=== PATIENT | male | born 1970 | race Hispanic/Latino ===

== ENCOUNTER 2025-08-06 05:05 | Emergency (ER) | payer SELFPAY ==
[~2025-08-06] VITALS: Ht 170.2 cm; Wt 97.5 kg
--- NOTE | 2025-08-06 05:27 | NUR ---
PT WENT TO [facility]. I ASKED THEM TO PLEASE NOT GIVE PT FLUIDS IF HE IS NAUSEATED AND VOMITING. FAMILY VOICED UNDERSTANDING
[2025-08-06] MEDS: M.V.I. IV [ADULT] 10 ML, FOLic ACID 5 MG/ML VIAL 1 MG, THIAMINE HCL 100 MG in 0.9%NACL ... IV SCH (05:50)
--- NOTE | 2025-08-06 06:00 | ERN ---
General Chief Complaint: Alcohol Intoxication Stated Complaint: ETOH, VOMITING Time Seen by MD: 05:15 Source: patient, family History of Present Illness Initial Comments 54-year-old male presents to emergency room with the complaints of hematemesis and alcohol intoxication. As per who was at bedside patient was watching the baseball game and drank greater than 10 drinks of Bong walker before he passed out. Patient does not remember the incident. Denies any loss of consciousness or head trauma. He was observed by his friends and his throughout the whole time. When prompted about what had happened tonight patient does not remember. Allergies: Coded Allergies: No Known Allergies (Unverified Allergy, Unknown, 08/06/25) Past Medical History Past Medical History: Hypertension Past Surgical History: Other Surgical History Other: RT ARM Gastrointestinal/Abdominal: (+) nausea, (+) vomiting Physical Exam General Appearance: (+) no apparent distress General Appearance comment Obviously intoxicated Orientation: (+) alert, (+) oriented x 3 Eye: bilateral eye normal inspection, bilateral eye PERRL, bilateral eye EOMI Ear, Nose, Throat: (+) normal ENT inspection, (+) moist mucous membraine, (+) normal pharynx Neck: (+) normal inspection Respiratory: (+) chest non-tender, (+) lungs clear Heart: (+) regular; (-) murmur Vascular: (+) no edema Gastrointestinal: (+) soft, (+) non-tender Skin: (+) normal color Results Laboratory and Microbiology Lab and Micro Result Laboratory Tests Test 08/06/25 05:58 08/06/25 08:13 08/06/25 09:55 08/06/25 11:55 White Blood Count 12.9 K/uL (4.8-10.8) H Red Blood Count 5.62 MIL/uL (4.50-6.20) Hemoglobin 15.8 g/dL (14.0-18.0) Hematocrit 44.9 % (42-54) Mean Corpuscular Volume 79.9 fL (79-99) Mean Corpuscular Hemoglobin 28.1 pg (27.0-33.0) Mean Corpuscular Hemoglobin Concent 35.2 g/dL (32.0-36.0) Red Cell Distribution Width 13.0 % (11.0-15.5) Platelet Count 252 K/uL (130-400) Mean Platelet Volume 9.9 fL (7.5-10.5) Immature Granulocyte % (Auto) 0.7 % (0-1) Neutrophils (%) (Auto) 84.3 % (40.0-77.0) H Lymphocytes (%) (Auto) 11.4 % (21.0-51.0) L Monocytes (%) (Auto) 3.0 % (3.0-13.0) Eosinophils (%) (Auto) 0.2 % (0.0-8.0) Basophils (%) (Auto) 0.4 % (0.0-5.0) Neutrophils # (Auto) 10.9 K/uL (1.8-7.7) H Lymphocytes # (Auto) 1.5 K/uL (1.0-4.8) Monocytes # (Auto) 0.4 K/uL (0.1-1.0) Eosinophils # (Auto) 0.02 K/uL (0.00-0.70) Basophils # (Auto) 0.05 K/uL (0.00-0.20) Absolute Immature Granulocyte (auto 0.09 K/uL (0-1) Nucleated Red Blood Cells 0.0 % (0.0-0.19) Sodium Level 138 mmol/L (136-145) Potassium Level 3.3 mmol/L (3.5-5.1) L Chloride Level 101 mmol/L (101-111) Carbon Dioxide Level 23 mmol/L (21-32) Blood Urea Nitrogen 12 mg/dL (7-18) Creatinine 0.9 mg/dL (0.5-1.3) Glomerular Filtration Rate Calc 102 mL/min (>90) Random Glucose 126 mg/dL (70-105) H Total Calcium 8.3 mg/dL (8.5-10.1) L Total Bilirubin 0.7 mg/dL (0.2-1.0) Direct Bilirubin 0.1 mg/dL (0.0-0.3) Aspartate Amino Transf (AST/SGOT) 28 U/L (10-37) Alanine Aminotransferase (ALT/SGPT) 34 U/L (12-78) Alkaline Phosphatase 71 U/L (50-136) Total Protein 7.6 g/dL (6.0-8.3) Albumin 4.3 g/dL (3.5-5.0) Serum Alcohol 153 mg/dL (0-10) H 90 mg/dL (0-10) H Urine Opiates Screen NEGATIVE (NEGATIVE) Urine Barbiturates Screen NEGATIVE (NEGATIVE) Urine Phencyclidine Screen NEGATIVE (NEGATIVE) Urine Amphetamines Screen NEGATIVE (NEGATIVE) Urine Benzodiazepines Screen NEGATIVE (NEGATIVE) Urine Cocaine Screen NEGATIVE (NEGATIVE) Urine Marijuana (THC) Screen NEGATIVE (NEGATIVE) Troponin I High Sensitivity 9 ng/L (4-75) Lipase 22 U/L (16-77) Influenza Type A Antigen Negative For Type A Influenza Type B Antigen Negative For Type B Labs Reviewed?: Yes EKG/XRAY/US/CT/MRI CT Scan Comment IMAGING REPORT Signed PATIENT: ROEL MARES MR#: [id number] : 1970 SEX: M AGE: 54 LOCATION: [facility] ORDER 1 STATUS: [facility] REPORT#: [id number] SERVICE 0 REASON: etoh ntox, fell on head, face hurts ORDERING PHYSICIAN: MARIO MORA MD PROCEDURE: HEAD WO - CT HEAD/BRAIN W/O CONTRAST EXAM: CT Head Without IV contrast. CLINICAL HISTORY: etoh ntox, fell on head, face hurts TECHNIQUE: Axial computed tomography images of the head/brain without intravenous contrast. COMPARISON: None provided. FINDINGS: BRAIN: No evidence of acute hemorrhage. No mass lesion. No CT evidence for acute territorial infarct. No midline shift or extra-axial collections. VENTRICLES: No hydrocephalus. ORBITS: The orbits are unremarkable. SINUSES AND MASTOIDS: The paranasal sinuses and mastoid air cells are clear. BONES: No fracture. SOFT TISSUES: Unremarkable. IMPRESSION: No acute intracranial abnormality. /[place] DICTATED BY: CORKY PEREZ Jr., MD DATE: 08/06/25805 ELECTRONICALLY SIGNED BY: CORKY PEREZ Jr., MD DATE: 08/06/25805 [facility] MDM: DIFFERENTIAL DIAGNOSIS:ALCOHOL INTOXICATION, GASTRITIS RATIONALE: TESTS CONSIDERED AND ORDERED SECONDARY TO SHARED DECISION MAKING INCLUDE: PREVIOUS OUTSIDE RECORDS REVIEWED: OLD ER VISITS. RISK OF COMPLICATION AND/OR MORBIDITY OR MORTALITY OF PATIENT MANAGEMENT: NONE MEDICATIONS-PER MEDICATION RECONCILIATION NEED FOR HOSPITALIZATION: PATIENT DOES NOT MEET CRITERIA FOR HOSPITALIZATION. NEED FOR EMERGENCY MAJOR/MINOR SURGERY: NO THERE ARE NO SOCIAL CONCERNS WITH THIS PATIENT. 54-year-old male history of hypertension here with for evaluation of vomiting and alcohol intoxication. PATIENT HAS A ELEVATED ALCOHOL HYDRATED MEDICATION WAS GIVEN FOR SYMPTOMATIC RELIEF STATES HE FEELS MUCH BETTER WE WILL BE DISCHARGED IN STABLE CONDITION P.O. CHALLENGE PASSED. ED Course Orders Procedure Category Date Status Time Cbc With Differential LAB 08/06/25 Complete 05:15 Basic Metabolic Panel LAB 08/06/25 Complete 05:15 Alcohol, Blood LAB 08/06/25 Complete 05:15 M.V.I. Iv [Adult] PHA 08/06/25 Complete (M.V.I. Iv [Adult])... 06:00 Hepatic Function Panel LAB 08/06/25 Complete 05:52 Ct Head/Brain W/O CT 08/06/25 Resulted Contrast 06:01 Ondansetron 4mg Inj PHA 08/06/25 Complete (Zofran 4mg Inj) 06:30 Insulin Regular, PHA 08/06/25 Complete Human 3ml (Humulin R 11:30 Dextrose 50%-Water PHA 08/06/25 Complete (D50w) 08:30 Glucagon 1mg Kit PHA 08/06/25 Complete (Glucagon 1mg Kit) 08:30 Potassium Chloride PHA 08/06/25 Complete 20meq/100ml ([place] 08:30 Potassium Chl 10% PHA 08/06/25 Complete Elixir 20meq (Kcl 10% 08:30 Potassium Chloride PHA 08/06/25 Complete 20meq Er (K-Dur/Klor- 08:30 Magnesium 2gm Premix PHA 08/06/25 Complete 50ml (Magnesium 2gm 08:30 Drug Screen Urine LAB 08/06/25 Complete 08:12 Influenza Type A & B, LAB 08/06/25 Complete Rapid 08:12 Potassium Bicarb/Cit PHA 08/06/25 Complete Ac 25meq (K-Lyte Ta 09:00 Alcohol, Blood LAB 08/06/25 Complete 09:52 Lipase LAB 08/06/25 Complete 11:09 Troponin I High LAB 08/06/25 Complete Sensitivity 11:09 Lidocaine Hcl 2% PHA 08/06/25 Complete Viscous (Lidocaine Hcl 12:30 Mag/Alum/Simeth 30ml PHA 08/06/25 Complete (Maalox Plus 30ml) 12:30 Current Medications Medications (Trade) Dose Ordered Sig/Walter Route PRN Reason Start Time Stop Time Status Last Admin Dose Admin Al Hydroxide/Mg Hydroxide (MAALox PLUS 30ML) 30 ml ONCE ONCE PO 08/06/25 12:30 08/06/25 12:31 DC 08/06/25 12:35 Dextrose (D50w) 50 ml AD PRN IV HYPOGLYCEMIA PROTOCOL 08/06/25 08:30 08/06/25 08:37 DC Glucagon (Glucagon 1mg Kit) 1 mg AD PRN IM HYPOGLYCEMIA PROTOCOL 08/06/25 08:30 08/06/25 08:37 DC Insulin Human Regular (humuLIN R 100 UNIT/ML 3ML) INSULIN SLIDING SCAL... ACHS SQ 08/06/25 11:30 08/06/25 08:37 DC Lidocaine HCl (Lidocaine HCl 2% Viscous) 10 ml ONCE ONCE PO 08/06/25 12:30 08/06/25 12:31 DC 08/06/25 12:34 Magnesium Sulfate 50 ml @ 0 mls/hr PROTOCOL PRN IV other 08/06/25 08:30 08/06/25 08:37 DC Multivitamins/ Minerals 10 ml/ Folic Acid 1 mg/ Thiamine HCl 100 mg/Sodium Chloride 1,011.2 ml @ 101.12 mls/hr Q24H IV 08/06/25 06:00 08/06/25 08:37 DC 08/06/25 05:50 Ondansetron HCl (zoFRAN 4MG INJ) 4 mg ONCE ONCE IVP 08/06/25 06:30 08/06/25 08:37 DC 08/06/25 06:23 Potassium Bicarbonate (K-Lyte Tablet Eff 25 Meq Tablet.eff) 25 meq ONCE ONCE PO 08/06/25 09:00 08/06/25 09:01 DC 08/06/25 09:59 Potassium Chloride 100 ml @ 100 mls/hr AD PRN IV POTASSIUM PROTOCOL 08/06/25 08:30 08/06/25 08:37 DC Potassium Chloride (K-Dur/Klor-Con 20meq) 20 meq AD PRN PO POTASSIUM PROTOCOL 08/06/25 08:30 08/06/25 08:37 DC Potassium Chloride (KCl 10% Elixir 20meq/15ml) 20 meq AD PRN PO POTASSIUM PROTOCOL 08/06/25 08:30 08/06/25 08:37 DC Vital Signs Date Time Temp Pulse Resp B/P (MAP) Pulse Ox O2 Delivery O2 Flow Rate FiO2 08/06/25 13:18 98.6 100 20 140/85 97 Room Air* 0 08/06/25 11:27 98.6 97 22 149/100 96 Room Air* 0 08/06/25 07:54 98.6 91 22 116/70 98 Room Air* 0 08/06/25 06:02 98.8 88 18 145/66 98 Room Air* 0 08/06/25 05:15 97.5 84 20 143/85 100 Room Air DX & DISP Disposition: Discharge Departure Impression: Primary Impression: Alcohol intoxication Additional Impression: Gastritis Condition: Stable Scripts Pantoprazole Sodium (Protonix) 40 Mg Ectab 1 TAB PO DAILY for 30 Days, #30 TAB 0 Refills Prov: MAYKEL WALLS MD 08/06/25 Lactobacillus Acidophilus (Acidophilus Probiotic) 500 Million Cell Capsule 1 CAP PO BID for 7 Days, #14 CAP 0 Refills Prov: MAYKEL WALLS MD 08/06/25 Additional Instructions: FOLLOW-UP WITH PRIMARY CARE PROVIDER IN 1 TO 2 DAYS. TAKE MEDICATIONS D IRECTED HERE IN THE EMERGENCY ROOM. OKAY TO CONTINUE HOME MEDICATIONS UNLESS OTHERWISE DISCUSSED DURING YOUR VISIT IN THE EMERGENCY ROOM TODAY. RETURN TO YOUR NEAREST EMERGENCY ROOM IF SYMPTOMS WORSEN OR IF THERE IS NO IMPROVEMENT. CALL 911 IF YOU NEED IMMEDIATE ASSISTANCE. TAKE TYLENOL [id number] NEEDED AND IF NO CONTRAINDICATIONS ARE PRESENT. INCREASE ORAL HYDRATION. A WOUND CULTURE OR URINE CULTURE WAS ORDERED HERE IN THE EMERGENCY ROOM DEPARTMENT PLEASE FOLLOW-UP WITH PRIMARY CARE PROVIDER AND ADVISE THEM TO GET REPORTS FROM OUR FACILITY. IF YOU HAD ANY JAK WRAP/SPLINTS THAT WERE APPLIED HERE, PLEASE DO NOT REMOVE THEM UNTIL YOU SEE YOUR PRIMARY CARE OR SPECIALTY. REFERRALS: Referrals: NONE (PCP) RAJESH HOOPER MD Time of Disposition: 13:25 MARIO MORA MD Aug 06, 2025 06:00 MAYEKL WALLS MD Aug 06, 2025 13:05
[2025-08-06 06:06] LABS: IMMATURE GRANULOCYTE ABSOLUTE 0.09 K/uL (0-1); NUCLEATED RED BLOOD CELLS 0.0 % (0.0-0.19); PLATELET COUNT (AUTO) 252 K/uL (130-400); RED BLOOD CELL COUNT(AUTO) 5.62 MIL/uL (4.50-6.20); RED CELL DISTRIBUTION WIDTH 13.0 % (11.0-15.5); WHITE BLOOD COUNT (AUTO) 12.9 K/uL (4.8-10.8)
[2025-08-06 06:16] LABS: ALCOHOL, BLOOD 153.0 mg/dL (0-10); CREATININE 0.9 mg/dL (0.5-1.3); GLOMERULAR FILTR. RATE CALC 102.0 mL/min (>90); GLUCOSE,RANDOM 126.0 mg/dL (70-105); SODIUM SERUM 138.0 mmol/L (136-145); UREA NITROGEN, BLOOD 12.0 mg/dL (7-18)
[2025-08-06 06:19] LABS: ASPARTATE AMINOTRANSFERASE 28.0 U/L (10-37); TOTAL PROTEIN, SERUM 7.6 g/dL (6.0-8.3)
--- NOTE | 2025-08-06 07:07 | HMCIMG ---
EXAM: CT Head Without IV contrast. CLINICAL HISTORY: etoh ntox, fell on head, face hurts TECHNIQUE: Axial computed tomography images of the head/brain without intravenous contrast. COMPARISON: None provided. FINDINGS: BRAIN: No evidence of acute hemorrhage. No mass lesion. No CT evidence for acute territorial infarct. No midline shift or extra-axial collections. VENTRICLES: No hydrocephalus. ORBITS: The orbits are unremarkable. SINUSES AND MASTOIDS: The paranasal sinuses and mastoid air cells are clear. BONES: No fracture. SOFT TISSUES: Unremarkable. IMPRESSION: No acute intracranial abnormality. /[place]
--- NOTE | 2025-08-06 07:09 | NUR ---
PT REMINDED THAT URINE SAMPLE IS STILL NEEDED AT THIS TIME.
[2025-08-06] MEDS ORDERED: MAGNESIUM 2GM PREMIX 50ML 50 ML IV PRN (08:30)
[2025-08-06] MEDS ORDERED: GLUCAGON 1MG KIT 1 MG ML IM PRN (08:30)
[2025-08-06] MEDS ORDERED: PoTASSium chloRIDE 20MEQ ER 20 MEQ ERTAB PO PRN (08:30)
[2025-08-06] MEDS ORDERED: PoTASSium chl 10% ELIXIR 20MEQ 20 MEQ/15 ML UDCUP PO PRN (08:30)
[2025-08-06] MEDS ORDERED: DEXTROSE 50%-WATER 50 ML DISP.SYRIN IV PRN (08:30)
[2025-08-06 08:35] LABS: AMPHET/METH SCREEN,URINE NEGATIVE (NEGATIVE); BARBITURATE SCREEN, URINE NEGATIVE (NEGATIVE); CANNABINOID SCREEN,URINE NEGATIVE (NEGATIVE); COCAINE SCREEN,URINE NEGATIVE (NEGATIVE)
[2025-08-06] MEDS: LIDOCAINE HCL 2% VISCOUS 15 ML UDCUP PO ONE (12:34)
[2025-08-06] MEDS: MAG/ALUM/SIMETH 30 ML UDCUP PO ONE (12:35)
[2025-08-06 12:49] LABS: INFLUENZA TYPE A Negative For Type A (NEGATIVE); INFLUENZA TYPE B Negative For Type B (NEGATIVE)
[2025-08-06 13:18] VITALS: BP 140/85; PULSE 100; RESP 20; TEMP 98.6; O2SAT 97
[2025-08-06] MEDS ORDERED: PANT40TA55 PO (13:26)
[2025-08-06] MEDS ORDERED: LACT-356 PO (13:26)
== END 2025-08-06 13:39 | disposition home or self-care (01) ==
LOC: EDH 05:13
DX: F10.129 Alcohol abuse with intoxication, unspecified (principal); K29.70 Gastritis, unspecified, without bleeding; I10 Essential (primary) hypertension; K92.0 Hematemesis; Y90.6 Blood alcohol level of 120-199 mg/100 ml
CPT/HCPCS: 99285; 96365; 70450; 96375; 80076; 84484; 80048; 80305; 83690; 85025; 87804 ×2; 36415; J7030; J3411; J2405; J3490